=== PATIENT | female | born 2000 | race Caucasian/White ===

== ENCOUNTER 2024-01-12 03:52 | Inpatient (IN) | payer SELFPAY ==
[2024-01-12] MEDS ORDERED: CEFAZOLIN 1 GM in Sodium Chloride 0.9% 100 ML IVPB SCH (05:15)
[2024-01-12] MEDS ORDERED: Gentamicin Sulfate 80 MG in Premix 1 BAG IVPB SCH (05:15)
[2024-01-12] MEDS: Ketorolac Tromethamine 30 MG (1 mL) VIAL IVP SCH (05:25)
[2024-01-12 05:29] VITALS: BMI 25.4
[2024-01-12] MEDS: Ibuprofen 200 MG TAB PO SCH (06:34)
[2024-01-12] MEDS: Dextrose 5 % And 0.9 % NaCl 1,000 ML IV SCH (06:40)
[2024-01-12] MEDS ORDERED: Bupivacaine PF 0.5% 30 ML VIAL ONE (12:48)
[2024-01-12] MEDS ORDERED: Bacitracin Zinc Ointment 30 gm TUBE ONE (12:48)
[2024-01-12] MEDS ORDERED: Thrombin 5000 UNITS/5 ML VIAL ONE (12:48)
[2024-01-12] MEDS ORDERED: Vancomycin 1 GM VIAL ONE (13:15)
[2024-01-12] MEDS ORDERED: fentaNYL PF 100 MCG/2 ML SYRINGE ONE (13:18)
[2024-01-12] MEDS ORDERED: Ondansetron PF 4 MG/2 ML Vial ONE (13:19)
[2024-01-12] MEDS ORDERED: Lidocaine 1% PF 5 ML VIAL ONE (13:19)
[2024-01-12] MEDS ORDERED: PROPOFOL 20 ML ONE (13:19)
[2024-01-12 13:32] LABS: Pregnancy Test - Urine (BHCG) Negative (Negative)
[2024-01-12 13:34] LABS: Pregu Control Background? CLEAR/WHITE (CLR/WHITE); Pregu Control Bar Appear? YES (CONTROL BAR); Specific Gravity 1.027 (1.002-1.036)
[2024-01-12] MEDS ORDERED: Midazolam HCl 2 mg/2 ml Vial ONE (13:43)
[2024-01-12] MEDS ORDERED: Meperidine HCl/PF 25 MG (1 mL) VIAL ONE (14:55)
[2024-01-12] MEDS ORDERED: Gentamicin 80 MG/2 ML VIAL ONE (15:01)
[2024-01-12] MEDS ORDERED: CEFAZOLIN 1 GM VIAL ONE (15:02)
[2024-01-12] MEDS ORDERED: fentaNYL 50 mcg/mL 1 mL Vial ONE (15:16)
[2024-01-12] MEDS: Acetaminophen/Codeine 30-300mg Tablet PO PRN (18:56)
[2024-01-12] MEDS: Ibuprofen 200 MG TAB PO PRN (22:09)
[2024-01-13] MEDS ORDERED: HYDROcodone/Acetaminophen 7.5/325 mg Tablet PO PRN (08:33)
[2024-01-13] MEDS: Morphine 4 MG/ML VIAL ONE (08:42)
[2024-01-13 09:56] LABS: #Basophils Less than 0.03 10x3/uL (0.0-0.2); %Basophils 0.2 % (0.0-1.0); %Eosinophils 2.7 % (0.0-10.0); %Monocytes 8.8 % (0.0-10.0); %Neutrophils 65.1 % (42.0-75.0); Hematocrit 33.7 % (36.0-47.0); Hemoglobin 11.4 g/dL (12.0-16.0); Mean Corpuscular HGB CONC 33.8 g/dL (32.0-36.0); Mean Corpuscular Hemoglobin 30.3 pg (27.0-31.0); Mean Corpuscular Volume 89.6 fL (78.0-98.0); Mean Platelet Volume 9.4 fL (7.4-10.4); Platelet Count 123 10x3/uL (130-400); RBC Distribution Width 13.8 % (11.5-14.5); Red Blood Cell (RBC) Count 3.76 mill/uL (4.20-5.40)
[2024-01-13] MEDS: Vancomycin 1 GM in Premix 1 BAG IVPB SCH (10:01)
[2024-01-13] MEDS: Ketorolac Tromethamine 30 MG (1 mL) VIAL IVP SCH (11:55)
[2024-01-13] MEDS: Gentamicin Sulfate 80 MG in Premix 1 BAG IVPB SCH (14:42)
[2024-01-14] MEDS: cefTRIAXone\\ROCEPHIN 2 GM in Sodium Chloride 0.9% 100 ML IVPB SCH (10:41)
[2024-01-14] MEDS: Morphine 4 MG/ML VIAL SLOW IVP PRN (11:16)
[2024-01-14] MEDS: Doxycycline 100 MG in Sodium Chloride 0.9% 100 ML IVPB SCH (11:16)
[2024-01-15 13:08] VITALS: BMI 25.4
[2024-01-16 05:40] LABS: #Basophils Less than 0.03 10x3/uL (0.0-0.2); %Basophils 0.4 % (0.0-1.0); %Eosinophils 5.5 % (0.0-10.0); %Lymphocytes 35.6 % (21.0-51.0); %Monocytes 8.5 % (0.0-10.0); %Neutrophils 49.8 % (42.0-75.0); Hematocrit 33.4 % (36.0-47.0); Hemoglobin 11.3 g/dL (12.0-16.0); Mean Corpuscular HGB CONC 33.8 g/dL (32.0-36.0); Mean Corpuscular Hemoglobin 29.4 pg (27.0-31.0); Mean Platelet Volume 9.4 fL (7.4-10.4); Platelet Count 151 10x3/uL (130-400); RBC Distribution Width 13.2 % (11.5-14.5); Red Blood Cell (RBC) Count 3.84 mill/uL (4.20-5.40)
[2024-01-16 06:02] LABS: Anion Gap 13 mmol/L (10-20); BUN (Urea Nitrogen) 15 mg/dL (7.0-18.7); CRP,High Sensitivity (Inhouse) 1.88 mg/dL (< or = 0.5); Calc. Creatinine Clearance 116 mL/min (70-130); Calcium 8.8 mg/dL (7.8-10.44); Carbon Dioxide 22 mmol/L (22-29); Chloride 107 mmol/L (98-107); Estimated GFR 125; Glucose 91 mg/dL (70-105); Sodium 138 mmol/L (136-145)
[2024-01-17 08:37] LABS: Reference Lab Name LABCORP
[2024-01-17] MEDS ORDERED: Thrombin 5000 UNITS/5 ML VIAL ONE (14:49)
[2024-01-17] MEDS ORDERED: Vancomycin 1 GM VIAL ONE (14:49)
[2024-01-17] MEDS ORDERED: Bupivacaine 0.25% HCL 30 ML VIAL ONE (14:49)
[2024-01-17] MEDS ORDERED: Bacitracin Zinc Ointment 30 gm TUBE ONE (14:49)
[2024-01-17] MEDS ORDERED: Meperidine HCl/PF 25 MG (1 mL) VIAL ONE (14:55)
[2024-01-17] MEDS ORDERED: Famotidine/PF 20 mg/2ml Vial ONE (14:55)
[2024-01-17] MEDS ORDERED: fentaNYL 50 mcg/mL 1 mL Vial ONE ×3 (15:02→17:00)
[2024-01-17] MEDS ORDERED: PROPOFOL 20 ML ONE (15:02)
[2024-01-17] MEDS ORDERED: Lidocaine 2% PF 5 ML VIAL ONE (15:19)
[2024-01-17] MEDS ORDERED: Ondansetron PF 4 MG/2 ML Vial ONE (15:41)
[2024-01-17] MEDS ORDERED: Dexamethasone 4 mg/ml Vial ONE (15:41)
[2024-01-17] MEDS ORDERED: Glycopyrrolate 0.2 MG/ML 5 ML SYRINGE ONE (15:49)
[2024-01-17] MEDS ORDERED: Ondansetron HCl/PF 4 MG/2 ML Vial IVP PRN (15:56)
[2024-01-17] MEDS ORDERED: Meperidine HCl/PF 25 MG/ML VIAL SLOW IVP PRN (15:56)
[2024-01-17] MEDS ORDERED: Promethazine HCl 25 MG/ML VIAL IM PRN (15:56)
[2024-01-17] MEDS ORDERED: Ketorolac Tromethamine 30 MG (1 mL) VIAL ONE (16:30)
[2024-01-17] MEDS ORDERED: Ketorolac Tromethamine 30 MG (1 mL) VIAL IVP PRN (16:56)
[2024-01-18] MEDS ORDERED: Lidocaine 1% PF 5 ML VIAL ONE (07:21)
[2024-01-18] MEDS ORDERED: Sodium Bicarbonate 2.5 MEQ/5 ML SDV ONE (07:21)
[2024-01-18 20:50] LABS: ALT (SGPT) 19 U/L (8-55); AST (SGOT) 18 U/L (5-34); Albumin 3.1 g/dL (3.5-5.0); Alkaline Phosphatase 49 U/L (40-110); Anion Gap 15 mmol/L (10-20); BUN (Urea Nitrogen) 21 mg/dL (7.0-18.7); Bilirubin, Total 0.2 mg/dL (0.2-1.2); Calc. Creatinine Clearance 101 mL/min (70-130); Calcium 8.4 mg/dL (7.8-10.44); Carbon Dioxide 19 mmol/L (22-29); Chloride 109 mmol/L (98-107); Estimated GFR 105; Globulin 3.1 g/dL (2.4-3.5); Glucose 119 mg/dL (70-105); Potassium 3.7 mmol/L (3.5-5.1); Protein, Total 6.2 g/dL (6.0-8.3); Sodium 139 mmol/L (136-145); Troponin I 0.014 ng/mL (< 0.028)
[2024-01-18 21:12] LABS: #Basophils 0.03 10x3/uL (0.0-0.2); %Basophils 0.5 % (0.0-1.0); %Lymphocytes 35.6 % (21.0-51.0); %Monocytes 7.9 % (0.0-10.0); %Neutrophils 51.7 % (42.0-75.0); Hematocrit 33.9 % (36.0-47.0); Hemoglobin 11.3 g/dL (12.0-16.0); Mean Corpuscular HGB CONC 33.3 g/dL (32.0-36.0); Mean Corpuscular Hemoglobin 29.4 pg (27.0-31.0); Mean Corpuscular Volume 88.1 fL (78.0-98.0); Mean Platelet Volume 9.6 fL (7.4-10.4); Platelet Count 176 10x3/uL (130-400); RBC Distribution Width 13.2 % (11.5-14.5); Red Blood Cell (RBC) Count 3.85 mill/uL (4.20-5.40)
[2024-01-19 06:23] LABS: Troponin I 0.011 ng/mL (< 0.028)
[2024-01-19 12:14] VITALS: BP 168/95; TEMP 98.5
== END 2024-01-19 13:19 | disposition home or self-care (01) | DRG 580 ==
LOC: SURG A 03:52
PROVIDERS: ADMIT Orthopaedic Surgery Hand Surgery; ATTEND Orthopaedic Surgery Hand Surgery
PROC: 0LB80ZZ Excision of Left Hand Tendon, Open Approach (ICD-10-PCS; 2024-01-13)
PROC: 0J9K0ZZ Drainage of Left Hand Subcutaneous Tissue and Fascia, Open Approach (ICD-10-PCS; 2024-01-13)
PROC: 0JQK0ZZ Repair Left Hand Subcutaneous Tissue and Fascia, Open Approach (ICD-10-PCS; principal; 2024-01-17)
PROC: 02HV33Z Insertion of Infusion Device into Superior Vena Cava, Percutaneous Approach (ICD-10-PCS; 2024-01-18)
PROC: B5181ZA Fluoroscopy of Superior Vena Cava using Low Osmolar Contrast, Guidance (ICD-10-PCS; 2024-01-18)
PROC: 3E04329 Introduction of Other Anti-infective into Central Vein, Percutaneous Approach (ICD-10-PCS; 2024-01-18)
PROC: B548ZZA Ultrasonography of Superior Vena Cava, Guidance (ICD-10-PCS; 2024-01-18)
DX: L02.512 Cutaneous abscess of left hand (principal); L03.114 Cellulitis of left upper limb; M65.842 Other synovitis and tenosynovitis, left hand; S69.92XA Unspecified injury of left wrist, hand and finger(s), initial encounter; L08.9 Local infection of the skin and subcutaneous tissue, unspecified; Q02 Microcephaly; B96.89 Other specified bacterial agents as the cause of diseases classified elsewhere
CPT/HCPCS: 36415; 36569; 71045; 76937; 76999; 77001; 80048; 80053; 80202; 81025; 82565; 84484; 85025; 86141; 87070; 87076; 87077; 87186; 87205; 93005; 93010; 97139; C1751; J0665; J0690; J0696; J1100; J1580; J1885; J2001; J2175; J2250; J2270; J2405; J2704; J3010; J3370; J3370-JW; J3490; J7042; S0028